=== PATIENT | female | born 1950 | race Caucasian/White ===

== ENCOUNTER → 2018-02-25 | Outpatient (CLI) | payer MEDICARE, OTHER | LOC: MC.RAD 10:06 | DX: Z12.31 Encounter for screening mammogram for malignant neoplasm of breast (principal) ==

== ENCOUNTER 2020-08-10 21:02 | Emergency (ER) | payer MEDICARE, OTHER ==
[~2020-08-10] VITALS: Ht 167.6 cm; Wt 90.9 kg
[2020-08-10 21:11] VITALS: TEMP 98.1
[2020-08-10 22:09] LABS: COLLECTION METHOD CLEAN CATCH
[2020-08-10 22:24] LABS: PH 6 (5-8); SQUAMOUS EPITHELIAL None Seen /hpf; URINE APPEARANCE Clear; URINE BACTERIA None Seen /hpf; URINE BILIRUBIN Negative (NEGATIVE); URINE BLOOD 3+ (NEGATIVE); URINE COLOR Straw; URINE GLUCOSE Negative (NEGATIVE); URINE KETONE Negative (NEGATIVE); URINE LEUKOCYTE ESTERASE 2+ (NEGATIVE); URINE NITRATE Negative (NEGATIVE); URINE PROTEIN(semi-quant) Negative (NEGATIVE); URINE RBC 20-50 /hpf; URINE UROBILINOGEN Negative (NEGATIVE)
[2020-08-10] MEDS ORDERED: PYRIDIUM200 M1 PO (22:32)
[2020-08-10] MEDS ORDERED: VANTIN 200200 MG/TAB PO (22:32)
[2020-08-10 22:46] VITALS: BP 128/71; PULSE 78
== END 2020-08-10 22:45 | disposition home or self-care (01) ==
LOC: COL.ER 21:02
PROVIDERS: Emergency Medicine
DX: N39.0 Urinary tract infection, site not specified (principal)

== ENCOUNTER 2020-11-09 08:23 | Day surgery (SDC) | payer MEDICARE, OTHER ==
[~2020-11-09] VITALS: Ht 165.1 cm; Wt 96.3 kg
[~2020-11-09 08:23] MED LIST: PYRIDIUM200 M1 PO; VANTIN 200200 MG/TAB PO
[2020-11-09] MEDS ORDERED: BUSPAR10 MG PO (09:06)
[2020-11-09] MEDS ORDERED: PRINIVIL5 MG PO (09:07)
[2020-11-09] MEDS ORDERED: VESICARE 5MG5 MG PO (09:07)
[2020-11-09] MEDS ORDERED: ZOCOR 20MG20 MG PO (09:07)
[2020-11-09] MEDS ORDERED: ERGOCALCIFER50000 IU PO (09:08)
[2020-11-09 09:09] VITALS: BP 136/86; PULSE 92; TEMP 97.6
[2020-11-09 11:05] VITALS: BP 127/80; PULSE 86; TEMP 98.1
--- NOTE | 2020-11-09 11:05 | NUR ---
Pt returns to [facility], alert and oriented, ambulates to recliner without difficulty. Denies pain or nausea. Sprite provided per request. Warm blanket provided. VSS. Call light in reach.
[2020-11-09 11:20] VITALS: BP 101/65; PULSE 79
--- NOTE | 2020-11-09 11:20 | NUR ---
Pt's brought to bedside. Pt denies pain or nausea, VSS. Denies wanting any food at this time.
[2020-11-09 11:35] VITALS: BP 98/70; PULSE 78
--- NOTE | 2020-11-09 11:40 | NUR ---
Dr. Schreiber at bedside and talks wiht pt and her . VSS. Discharge instructions provided and IV discontinued.
[2020-11-09 11:50] VITALS: BP 104/64; PULSE 77
--- NOTE | 2020-11-09 12:07 | NUR ---
Pt taken to private car via wheelchair and left in care of her .
== END 2020-11-09 12:07 | disposition home or self-care (01) ==
LOC: SDCO 08:23
DX: Z12.11 Encounter for screening for malignant neoplasm of colon (principal); D12.2 Benign neoplasm of ascending colon; K57.30 Diverticulosis of large intestine without perforation or abscess without bleeding; K64.3 Fourth degree hemorrhoids; E78.5 Hyperlipidemia, unspecified; I10 Essential (primary) hypertension; M54.9 Dorsalgia, unspecified; M19.90 Unspecified osteoarthritis, unspecified site; G47.30 Sleep apnea, unspecified; F41.9 Anxiety disorder, unspecified; Z20.822 Contact with and (suspected) exposure to COVID-19; Z90.49 Acquired absence of other specified parts of digestive tract; Z80.9 Family history of malignant neoplasm, unspecified
CPT/HCPCS: J2704; J7120